=== PATIENT | female | born 1945 | race Caucasian/White ===

== ENCOUNTER 2017-06-03 06:11 | Day surgery (SDC) | payer OTHER ==
[~2017-06-03] VITALS: Ht 160 cm; Wt 64.5 kg
[~2017-06-03 06:11] MED LIST: ASPI81EC PO; CALCIUM PO; DILT30 PO; FEXO180 PO; FISH OIL PO; OMEP20ER PO
[2017-06-03] MEDS ORDERED: PANT40 PO (06:38)
[2017-06-03] MEDS ORDERED: LETR2.5 PO (06:39)
[2017-06-03] MEDS ORDERED: CHOL10002 (06:39)
[2017-06-03] MEDS ORDERED: ZYRTEC10 M1 PO (06:39)
[2017-06-03] MEDS ORDERED: PROLIA60 MG/1 ML SQ (06:40)
[2017-06-03] MEDS ORDERED: MAGOXI400 PO (06:40)
== END 2017-06-03 09:10 | disposition home or self-care (01) ==
LOC: ORSCSDS 06:11
PROVIDERS: Podiatrist Foot & Ankle Surgery
PROC: 0QBM0ZX Excision of Left Tarsal, Open Approach, Diagnostic (ICD-10-PCS; principal; 2017-06-03 07:30)
DX: M77.32 Calcaneal spur, left foot (principal); I10 Essential (primary) hypertension; K21.9 Gastro-esophageal reflux disease without esophagitis; Z79.899 Other long term (current) drug therapy; Z79.82 Long term (current) use of aspirin
CPT/HCPCS: 88305; 88311; J0690; J1100; J2250; J2405; J3010; J7120

== ENCOUNTER 2019-09-12 00:52 | Observation (INO) | payer MEDICARE ==
[~2019-09-12] VITALS: Ht 160 cm; Wt 63.8 kg
[~2019-09-12 00:52] MED LIST changes: +CHOL10002; +LETR2.5 PO; +MAGOXI400 PO; +PANT40 PO; +PROLIA60 MG/1 ML SQ; +ZYRTEC10 M1 PO
[2019-09-12 01:21] LABS: BASOPHILS ABSOLUTE AUTO 0.08 K/mm3 (0.00-0.23); BASOPHILS PERCENT AUTO 1 % (0-2); EOSINOPHILS ABSOLUTE AUTO 0.24 K/mm3 (0.00-0.68); EOSINOPHILS PERCENT AUTO 2 % (0-6); Hematocrit 42.8 % (33.0-51.0); IMMATURE GRAN ABSOLUTE AUTO 0.05 K/mm3 (0.00-0.10); IMMATURE GRAN PERCENT AUTO 1 % (0-1); LYMPHOCYTES ABSOLUTE AUTO 3.64 K/mm3 (0.84-5.20); LYMPHOCYTES PERCENT AUTO 33 % (21-46); MONOCYTES ABSOLUTE AUTO 1.28 K/mm3 (0.16-1.47); MONOCYTES PERCENT AUTO 12 % (4-13); Mean Corpuscular HGB Conc 32.7 g/dL (31.5-36.5); Mean Corpuscular Volume 86 fL (80-100); NEUTROPHILS ABSOLUTE AUTO 5.77 K/mm3 (1.96-9.15); NEUTROPHILS PERCENT AUTO 52 % (41-73); Platelet Count 273 K/mm3 (150-400); RDW Coefficient Variation 13.5 % (11.7-14.2); RDW Standard Deviation 41.8 fL (35.1-46.3); White Blood Cell Count 11.06 K/mm3 (4.00-11.30)
[2019-09-12 01:43] LABS: Free Thyroxine 1.33 ng/dL (0.70-1.60)
[2019-09-12 01:44] LABS: Albumin, Blood 3.7 g/dL (3.4-5.0); Albumin/Globulin Ratio 0.9 (0.8-1.8); Bilirubin, Total 0.3 mg/dL (0.1-1.0); Bun/Creatinine Ratio 15.6 (12.0-20.0); Calcium, Blood 9.7 mg/dL (8.5-10.1); Creatinine, Blood 1.22 mg/dL (0.40-1.00); Globulin, Blood 4.1 g/dL (2.2-4.0); Total Protein, Blood 7.8 g/dL (6.4-8.2)
[2019-09-12 01:53] LABS: Thyroid Stimulating Hormone 2.3 uIU/mL (0.360-4.800)
[2019-09-12 01:54] LABS: Troponin I 3.41 ng/mL (0.000-0.040)
[2019-09-12] MEDS ORDERED: PANTOPRAZOLE SO40 M2 PO (02:22)
[2019-09-12] MEDS ORDERED: LETROZOLE2.5 MG PO (02:22)
[2019-09-12 02:43] LABS: International Normalized Ratio 0.96; Prothrombin Time Results 10.3 Sec (9.7-11.5)
--- NOTE | 2019-09-12 05:03 | NUR ---
SHIFT SUMMARY: PATIENT ARRIVED TO [facility] AT APPROX 0400 VIA GURNEY FROM ER. PATIENT ABLE TO EASILY PIVOT TRANSFER FROM GURNEY TO BED WITH SBA FOR IV LINE. PATIENT SKIN C/D/I, LEFT SIDED MASTECTOMY NOTED/PATIENT STATED THE SURGERY WITH LYMPHECTOMY WAS IN 2010. PATIENT ALERT AND ORIENTED TO ALL AND COOPERATIVE WITH CARE. PATIENT ORIENTED TO ROOM, CALL LIGHT AND HOSPITAL POLICIES, ADMISSION COMPLETED. HEPARIN RUNNING AT ORDERED RATE, VERIFIED WITH RICARDO REED. CARDIOLOGY CONSULT CALLED IN AND PATIENT CURRENTLY NPO, ALL VSS, CALL LIGHT WITHIN REACH, BED LOW AND LOCKED.
[2019-09-12 10:30] LABS: BASOPHILS ABSOLUTE AUTO 0.08 K/mm3 (0.00-0.23); BASOPHILS PERCENT AUTO 1 % (0-2); EOSINOPHILS ABSOLUTE AUTO 0.17 K/mm3 (0.00-0.68); EOSINOPHILS PERCENT AUTO 2 % (0-6); Hematocrit 43.6 % (33.0-51.0); Hemoglobin 13.9 g/dL (11.5-16.0); IMMATURE GRAN ABSOLUTE AUTO 0.04 K/mm3 (0.00-0.10); IMMATURE GRAN PERCENT AUTO 1 % (0-1); LYMPHOCYTES ABSOLUTE AUTO 2.62 K/mm3 (0.84-5.20); LYMPHOCYTES PERCENT AUTO 30 % (21-46); MONOCYTES ABSOLUTE AUTO 1.06 K/mm3 (0.16-1.47); MONOCYTES PERCENT AUTO 12 % (4-13); Mean Corpuscular HGB 27.6 pg (26.0-34.0); Mean Corpuscular HGB Conc 31.9 g/dL (31.5-36.5); Mean Corpuscular Volume 87 fL (80-100); Mean Platelet Volume 8.2 fL (9.1-12.4); NEUTROPHILS ABSOLUTE AUTO 4.91 K/mm3 (1.96-9.15); NEUTROPHILS PERCENT AUTO 55 % (41-73); Platelet Count 310 K/mm3 (150-400); RDW Coefficient Variation 13.6 % (11.7-14.2); RDW Standard Deviation 42.7 fL (35.1-46.3); Red Blood Cell Count 5.03 M/mm3 (3.80-5.20); White Blood Cell Count 8.88 K/mm3 (4.00-11.30)
--- NOTE | 2019-09-12 10:34 | NUR ---
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 HEPARIN GTT WAS STOPPED PRIOR TO TRANSPORT. PT TRANSPORTED VIA HOSPITAL BED BY AILEEN REED
[2019-09-12 10:49] LABS: Albumin, Blood 3.3 g/dL (3.4-5.0); Albumin/Globulin Ratio 0.8 (0.8-1.8); Bilirubin, Total 0.5 mg/dL (0.1-1.0); Bun/Creatinine Ratio 15.3 (12.0-20.0); Calcium, Blood 9.2 mg/dL (8.5-10.1); Creatinine, Blood 1.11 mg/dL (0.40-1.00); Potassium, Blood 4.2 mmol/L (3.5-5.5); Total Protein, Blood 7.3 g/dL (6.4-8.2)
[2019-09-12 11:13] LABS: Troponin I 2.84 ng/mL (0.000-0.040)
--- NOTE | 2019-09-12 12:17 | NUR ---
Patient is sitting up in bed and alert. Patient tells me about the good findings during her angiogram, about her family and about the care plan moving forward. Patient's , Dionisio is bedside and would often highjack the conversation because he can't hear well and since I am wearing a surgical mask he can't tell when I am talking. I listen empathically, normalize patient's experience and provide a blessing. I will continue to remain available to patient and family.
--- NOTE | 2019-09-12 18:26 | NUR ---
PCU DAYSHIFT SUMMARY PATIENT ALERT AND ORIENTED X4 T/O SHIFT (ASSUMED CARE OF PATIENT AT 1200 APPROX). PATIENT DENIES ANY PAIN T/O SHIFT. PATIENT CONVERTED THIS SHIFT FROM AFIB 90'S TO SR-SB 50-60'S. RESP E/U ON ROOM AIR. RIGHT RADIAL SITE RECOVERED AT 1500 - TEGADERM DRESSING IN PLACE AND ARM BOARD IN PLACE. MARTIN SEE PATIENT. PATIENT SHOULD D/C HOME TOMORROW. WILL CONTINUE TO MONITOR AND REPORT TO NOC SHIFT RN. CALL W/I REACH. NO S/SX OF DISTRESS NOTED.
[2019-09-12 19:30] LABS: Troponin I 1.96 ng/mL (0.000-0.040)
[2019-09-13 03:51] LABS: BASOPHILS ABSOLUTE AUTO 0.09 K/mm3 (0.00-0.23); BASOPHILS PERCENT AUTO 1 % (0-2); EOSINOPHILS ABSOLUTE AUTO 0.26 K/mm3 (0.00-0.68); EOSINOPHILS PERCENT AUTO 2 % (0-6); Hematocrit 38.8 % (33.0-51.0); IMMATURE GRAN ABSOLUTE AUTO 0.06 K/mm3 (0.00-0.10); IMMATURE GRAN PERCENT AUTO 1 % (0-1); LYMPHOCYTES ABSOLUTE AUTO 2.67 K/mm3 (0.84-5.20); LYMPHOCYTES PERCENT AUTO 25 % (21-46); MONOCYTES ABSOLUTE AUTO 1.29 K/mm3 (0.16-1.47); MONOCYTES PERCENT AUTO 12 % (4-13); Mean Corpuscular HGB 27.9 pg (26.0-34.0); Mean Corpuscular HGB Conc 30.9 g/dL (31.5-36.5); Mean Corpuscular Volume 90 fL (80-100); Mean Platelet Volume 8.2 fL (9.1-12.4); NEUTROPHILS ABSOLUTE AUTO 6.45 K/mm3 (1.96-9.15); NEUTROPHILS PERCENT AUTO 60 % (41-73); Platelet Count 252 K/mm3 (150-400); RDW Coefficient Variation 13.9 % (11.7-14.2); RDW Standard Deviation 45.7 fL (35.1-46.3); White Blood Cell Count 10.82 K/mm3 (4.00-11.30)
[2019-09-13 04:12] LABS: Bun/Creatinine Ratio 17.8 (12.0-20.0); Calcium, Blood 8.5 mg/dL (8.5-10.1); Creatinine, Blood 1.35 mg/dL (0.40-1.00); Potassium, Blood 4.9 mmol/L (3.5-5.5)
--- NOTE | 2019-09-13 05:45 | NUR ---
SHIFT SUMMARY PT RESTING IN ROOM COMFORTABLY AT THIS TIME. NO ACUTE CHANGES IN STATUS T/O NIGHT. PT SLEPT WELL. DENIED ANY CP OR SOB. DENIED OTHER NEEDS. NO CHANGES IN TELE. RESP EVEN UNLABORED ON RA W/ SATS >92%. CALL LIGHT IN REACH, PT IND IN ROOM.
[2019-09-13] MEDS ORDERED: ASPI81CH PO (14:04)
[2019-09-13] MEDS ORDERED: ATOR80 PO (14:05)
[2019-09-13] MEDS ORDERED: METO25ER PO (14:06)
[2019-09-13] MEDS ORDERED: XARELTO15 MG PO (14:07)
--- NOTE | 2019-09-13 15:08 | NUR ---
PT DISCHARGED TO HOME WITH DISCHARGE ORDERS, MEDICATIONS FAXED TO [facility]. PT'S VITALS HAS BEEN STABLE PT CONVERTED TO SINUS RHYTHM 50-60'S, SATS ABOVE 95% ON ROOMAIR, DENIES SOB, CHEST PAIN/PRESSURE. RADIAL ACCESS SITE WITH TRANSPARENT DRESSING CDI. DISCHARGE INSTRUCTIONS DISCLOSED WITH THE PATIENT WELL NEW MEDICATIONS. PT TO FOLLOW UP WITH DR SALAZAR WITHIN 2 WEEKS, AND WITH PCP. PT SIGNED DISCHARGE CONSENT FORM, ALL BELONGINGS SENT WITH PATIENT, PT ACCOMPANIED FOR TRANSPO.
== END 2019-09-13 14:55 | disposition home or self-care (01) ==
LOC: ER 00:52 → PCU 00:53
PROVIDERS: Emergency Medicine; Hospitalist; ADMIT Internal Medicine
PROC: B2111ZZ Fluoroscopy of Multiple Coronary Arteries using Low Osmolar Contrast (ICD-10-PCS; principal; 2019-09-12)
PROC: 4A023N7 Measurement of Cardiac Sampling and Pressure, Left Heart, Percutaneous Approach (ICD-10-PCS; principal; 2019-09-12)
DX: I21.4 Non-ST elevation (NSTEMI) myocardial infarction (principal); I24.9 Acute ischemic heart disease, unspecified; I25.10 Atherosclerotic heart disease of native coronary artery without angina pectoris; I48.91 Unspecified atrial fibrillation; I12.9 Hypertensive chronic kidney disease with stage 1 through stage 4 chronic kidney disease, or unspecified chronic kidney disease; N18.3 Chronic kidney disease, stage 3 (moderate); K21.9 Gastro-esophageal reflux disease without esophagitis; Z88.5 Allergy status to narcotic agent; Z79.899 Other long term (current) drug therapy
CPT/HCPCS: 36415; 71045; 76937; 80048; 80053; 82550; 84439; 84443; 84484; 85025; 85347; 85610; 85730; 93005; 93010; 93306; 93458; 96365; 96376; 99152; 99153; 99285-25; A9270-GY; C1769; C1894; G0378; J1644; J2250; J3010; J7030; Q9967; U0002

== ENCOUNTER 2022-08-04 09:49 | Day surgery (SDC) | payer MEDICARE ==
[~2022-08-04] VITALS: Ht 160 cm; Wt 63.7 kg
[~2022-08-04 09:49] MED LIST changes: +ASPI81CH PO; +ATOR80 PO; +LETROZOLE2.5 MG PO; +METO25ER PO; +PANTOPRAZOLE SO40 M2 PO; +XARELTO15 MG PO
[2022-08-04] MEDS ORDERED: CALCIUM 500 MG1 EAC2 (10:29)
[2022-08-04] MEDS ORDERED: FERREX 28 TABL1 EACH (10:30)
[2022-08-04] MEDS ORDERED: Lisinopril2.5 MG (10:31)
[2022-08-04] MEDS ORDERED: B COMPLEX FORM0.4 MG (10:35)
[2022-08-04] MEDS ORDERED: MAGNESIUM GLU27.5 MG (10:35)
[2022-08-04] MEDS ORDERED: METO25ER (10:35)
[2022-08-04] MEDS ORDERED: PANT40 (10:35)
[2022-08-04] MEDS ORDERED: WARF5 (10:36)
[2022-08-04 13:20] VITALS: BP 163/66
== END 2022-08-04 13:05 | disposition home or self-care (01) ==
LOC: ORSCSDS 09:49
PROVIDERS: Surgery
PROC: 0DB68ZX Excision of Stomach, Via Natural or Artificial Opening Endoscopic, Diagnostic (ICD-10-PCS; principal; 2022-08-04 11:15)
PROC: 0DB48ZX Excision of Esophagogastric Junction, Via Natural or Artificial Opening Endoscopic, Diagnostic (ICD-10-PCS; principal; 2022-08-04 11:15)
PROC: 0DBN8ZX Excision of Sigmoid Colon, Via Natural or Artificial Opening Endoscopic, Diagnostic (ICD-10-PCS; principal; 2022-08-04 11:15)
PROC: 0DBL8ZX Excision of Transverse Colon, Via Natural or Artificial Opening Endoscopic, Diagnostic (ICD-10-PCS; principal; 2022-08-04 11:15)
DX: K92.1 Melena (principal); K29.50 Unspecified chronic gastritis without bleeding; K44.9 Diaphragmatic hernia without obstruction or gangrene; D12.3 Benign neoplasm of transverse colon; K63.5 Polyp of colon; Z86.010 Personal history of colon polyps; I48.0 Paroxysmal atrial fibrillation; N18.30 Chronic kidney disease, stage 3 unspecified; I12.9 Hypertensive chronic kidney disease with stage 1 through stage 4 chronic kidney disease, or unspecified chronic kidney disease; E78.5 Hyperlipidemia, unspecified; K21.9 Gastro-esophageal reflux disease without esophagitis; Z85.3 Personal history of malignant neoplasm of breast; Z79.01 Long term (current) use of anticoagulants; Z79.899 Other long term (current) drug therapy
CPT/HCPCS: 88305; 88342; J2704; J7120

== ENCOUNTER → 2023-01-06 | Outpatient (CLI) | payer MEDICARE ==
[~2023-01-06] MED LIST changes: +B COMPLEX FORM0.4 MG; +CALCIUM 500 MG1 EAC2; +FERREX 28 TABL1 EACH; +Lisinopril2.5 MG; +MAGNESIUM GLU27.5 MG; +METO25ER; +PANT40; +WARF5
[2023-01-06 12:53] LABS: BASOPHILS ABSOLUTE AUTO 0.04 K/mm3 (0.00-0.23); BASOPHILS PERCENT AUTO 1 % (0-2); EOSINOPHILS ABSOLUTE AUTO 0.12 K/mm3 (0.00-0.68); EOSINOPHILS PERCENT AUTO 2 % (0-6); Hematocrit 42.2 % (33.0-51.0); Hemoglobin 14.6 g/dL (11.5-16.0); IMMATURE GRAN ABSOLUTE AUTO 0.04 K/mm3 (0.00-0.10); IMMATURE GRAN PERCENT AUTO 1 % (0-1); LYMPHOCYTES ABSOLUTE AUTO 1.74 K/mm3 (0.84-5.20); LYMPHOCYTES PERCENT AUTO 25 % (21-46); MONOCYTES ABSOLUTE AUTO 0.77 K/mm3 (0.16-1.47); MONOCYTES PERCENT AUTO 11 % (4-13); Mean Corpuscular HGB 31.9 pg (26.0-34.0); Mean Corpuscular HGB Conc 34.6 g/dL (31.5-36.5); Mean Corpuscular Volume 92 fL (80-100); NEUTROPHILS PERCENT AUTO 62 % (41-73); Platelet Count 230 K/mm3 (150-400); RDW Coefficient Variation 13.4 % (11.7-14.2); RDW Standard Deviation 45.7 fL (35.1-46.3); Red Blood Cell Count 4.58 M/mm3 (3.80-5.20); White Blood Cell Count 7.11 K/mm3 (4.00-11.30)
[2023-01-06 12:57] LABS: Bilirubin, Total 0.6 mg/dL (0.1-1.0); Bun/Creatinine Ratio 17.1 (12.0-20.0); Calcium, Blood 9.2 mg/dL (8.5-10.1); Creatinine, Blood 1.17 mg/dL (0.40-1.00); Globulin, Blood 3.9 g/dL (2.2-4.0); Potassium, Blood 4.3 mmol/L (3.5-5.5); Total Protein, Blood 7.9 g/dL (6.4-8.2)
[2023-01-06 13:26] LABS: International Normalized Ratio 2.33; Prothrombin Time Results 23.3 Sec (9.7-11.5)
== END ==
LOC: LAB SHORT 11:25 → LAB 11:25
PROVIDERS: Family Medicine
DX: R42 Dizziness and giddiness (principal); I48.0 Paroxysmal atrial fibrillation
CPT/HCPCS: 80053; 85025; 85610

== ENCOUNTER 2024-07-18 09:30 | Day surgery (SDC) | payer OTHER ==
[~2024-07-18] VITALS: Ht 160 cm; Wt 66.0 kg
[~2024-07-18 09:30] MED LIST changes: +Lactated Ringer's 1,000 ML IV ONE; +propofoL 50 ML IV ONE
[2024-07-18] MEDS ORDERED: CARBAMAZEPINE200 M7 (10:51)
[2024-07-18] MEDS ORDERED: ELIQUIS5 M3 (10:52)
[2024-07-18] MEDS ORDERED: Lactated Ringer's 1,000 ML IV ONE (11:15)
[2024-07-18 12:00] VITALS: BP 116/58
== END 2024-07-18 11:59 | disposition home or self-care (01) ==
LOC: ORSCSDS 09:30
PROVIDERS: Surgery
PROC: 0DB48ZX Excision of Esophagogastric Junction, Via Natural or Artificial Opening Endoscopic, Diagnostic (ICD-10-PCS; principal; 2024-07-18 11:15)
DX: K22.70 Barrett's esophagus without dysplasia (principal); K44.9 Diaphragmatic hernia without obstruction or gangrene; I48.91 Unspecified atrial fibrillation; I12.9 Hypertensive chronic kidney disease with stage 1 through stage 4 chronic kidney disease, or unspecified chronic kidney disease; N18.30 Chronic kidney disease, stage 3 unspecified; Z79.01 Long term (current) use of anticoagulants; Z79.899 Other long term (current) drug therapy
CPT/HCPCS: 88305; J2704; J7120